=== PATIENT | male | born 1965 | race Caucasian/White ===

== ENCOUNTER 2018-03-28 18:11 | Emergency (ER) | payer OTHER ==
[2018-03-28] MEDS ORDERED: ORPHENADRINE CITRATE 60 MG/2ML IV ONE (18:34)
[2018-03-28] MEDS ORDERED: KETOROLAC TROMETHAMINE 30 MG/1ML VIAL IVP ONE (18:34)
[2018-03-28] MEDS ORDERED: 0.9 % SODIUM CHLORIDE 1,000 ML IV ONE ×2 (18:34→19:52)
--- NOTE | 2018-03-28 18:40 | ED Physician Documentation ---
General Adult - HISTORIAN Historian: patient, spouse - HPI Stated Complaint: near syncope Chief Complaint: General Adult Additional Information: At [employer] practicing when he felt groin muscle "snap." Sat down, and bystanders said he was unresponsive for a few moments. Not sure if he passed out , but remained in sitting position. Mouth dry. Has had sore right groin muscles for several days and has been taking ibuprofen; none today. Has dry mouth. Urine x 4 today, as much as usual. Diaphoretic, but says this is typical. Pain right groin area with movement. - ROS CONST: other (see above) - PAST HX Past History: none Surgeries/Procedures: none Allergies/Adverse Reactions: Allergies Allergy/AdvReac Type Severity Reaction Status Date / Time No Known Allergies Allergy Verified 03/28/18 18:39 Home Medications: Ambulatory Orders Medication Instructions Recorded NK [NK] 03/28/18 - SOCIAL HX Smoking History: non-smoker - FAMILY HX Family History: No - REVIEWED ASSESSMENTS Nursing Assessment Reviewed: Yes Vitals Reviewed: Yes ED Results Lab/Radiology - Orders Orders: ED Orders Category Date Time Status Continuous EKG monitoring Q1H Care 03/28/18 18:[address] IV Lock 1T Care 03/28/18 18:28 Active CHEST 2VIEW [RAD] Stat Exams 03/28/18 Ordered CBC/PLATELET/DIFF Routine Lab 03/28/18 Ordered CMP Routine Lab 03/28/18 Ordered TROPONIN I (cTnI) Stat Lab 03/28/18 Ordered URINALYSIS Routine Lab 03/28/18 Ordered Ketorolac Tromethamine [Toradol] Med 03/28/18 18:34 Once 30 mg IVP NOW ONE NORMAL SALINE @ 1000 MLS/HR ( 1000ml BOLUS) Med 03/28/18 18:34 Ordered 0.9 % Sodium Chloride [Normal Saline] 1,000 ml IV Q1H Orphenadrine Citrate [Norflex] Med 03/28/18 18:34 Once 60 mg IV NOW ONE EKG WITH COMPARISON Stat Ther 03/28/18 Ordered General Adult Physical Exam - PHYSICAL EXAM GENERAL APPEARANCE: mild distress EENT: eye inspection normal, ENT inspection normal (except dry), pharynx normal NECK: normal inspection, supple RESPIRATORY: no resp distress, breath sounds normal CVS: reg rate & rhythm, heart sounds normal ABDOMEN: soft, normal bowel sounds BACK: normal inspection, no CVA tenderness SKIN: warm/dry, normal color EXTREMITIES: normal range of motion (gait and stance), no evidence of injury NEURO: CN's nml as tested, motor nml, sensation nml, cognition normal Discharge Clincal Impression: Vasovagal near syncope Clincal Impression: (Ruled Out): Near syncope Referrals: Primary Doctor,No [Primary Care Provider] - 2 Days Additional Instructions: Ice to the sore groin area for 30 minutes of each hour you are awake. Drink plenty of water. Condition: Good Disposition: 01 HOME, SELF-CARE Decision to Admit: NO Decision Time: 21:50
[2018-03-28 18:58] LABS: BASOPHILS % 0.3 (0.0-1.5); MEAN CORPUSCULAR HEMOGLOBIN 29.2 pg (28.0-34.0); MEAN CORPUSCULAR VOLUME 87.3 fl (80.0-100.0); MONOCYTES % 5.9 % (0.0-11.0); NEUTROPHILS # 5.4 # k/uL (1.4-7.7)
[2018-03-28 19:27] LABS: eGFR (African) > 60; eGFR (Non-African) > 60
--- NOTE | 2018-03-28 20:06 | Diagnostic Imaging Report ---
[facility] [address] [facility] [address] [id number] Report Submission Date: Mar 28, 2018 8:02:55 PM CDT Patient Study Name: ZANDER FRANCISCO Date: Mar 28, 2018 7:29:44 PM CDT Modality Type: DX Gender: M Description: CHEST : 63 Institution: [facility] Physician: JEFF SUTHERLAND - LISBETH Chest 2 views Date of Exam: March 28, 2018. History: PT STATES NEAR SYNCOPE TODAY (Hx) / ITS.REASON near syncope Findings: The cardiac and mediastinal silhouettes are normal. The lungs are clear. There is no evidence of pulmonary infiltrate or pleural effusion. The trachea is midline and aortic arch contour is normal. The pulmonary vascularity is within normal limits. There is gaseous distension of colon in the upper abdomen. Impression: No acute cardiopulmonary abnormality. Electronically signed on Mar 28, 2018 8:02:55 PM CDT by: Sam WALKER
[2018-03-28 22:18] VITALS: BP 119/72
[2018-03-29 06:31] LABS: APPEARANCE,URINE CLEAR (CLEAR); COLOR,URINE YELLOW (YELLOW); OCCULT BLOOD,URINE NEGATIVE (NEGATIVE); PH URINE 6.5 (5.0 - 8.0); UROBILINOGEN URINE 0.2 Eu (0.2-1.0)
== END 2018-03-28 22:00 | disposition home or self-care (01) ==
LOC: ED 18:11
DX: R55 Syncope and collapse (principal)
CPT/HCPCS: 71046; 80053; 81002; 84484; 85025; 93005; 96365; 96366; 96374; 96375; 99285; J1885; J2360; J7030; S1016